=== PATIENT | female | born 1980 | race Caucasian/White ===

== ENCOUNTER 2021-01-18 11:34 | Emergency (ER) | payer OTHER ==
[2021-01-18] MEDS: Sodium Chloride 0.9% 1,000 ML IV ONE (12:05)
--- NOTE | 2021-01-18 12:24 | EDM.PDOC ---
ED HPI GENERAL MEDICAL PROBLEM - General Chief Complaint: General Stated Complaint: HBP Time Seen by Provider: 01/18/21 12:07 Source of Information: Reports: Patient - History of Present Illness INITIAL COMMENTS - FREE TEXT/NARRATIVE: Indu is a 40 y/o female who comes to the ER with complaints of dizziness. She felt fine this AM when she got up and ate breakfast and went to work. She reports sitting at her desk today and then she became dizzy. She had to get up and walk around, but was still dizzy. She went outside and was sweaty and was still dizzy. She does not feel the room spin around her and is still dizzy despite any position changes. No nausea or vomiting. SHe has not had this happen before. He mother does have a history of vertigo. She was recently started on a BP med and she is not feeling as thirsty as usual, but she is trying to drink water. No chest pain. She does have a history of anxiety and has taken Xanax in the past, but has not used it for 4 months now. She does report having a very restless time sleeping last night. Left Shoulder Pain Score (Numeric/FACES): 2 - Related Data Allergies Allergy/AdvReac Type Severity Reaction Status Date / Time azithromycin [From Zithromax] Allergy Rash Verified 01/18/21 12:44 bupropion [From Wellbutrin] Allergy Cannot Verified 01/18/21 12:44 Remember codeine Allergy Cannot Verified 01/18/21 12:44 Remember fluticasone [From Flonase] Allergy Other Verified 01/18/21 12:44 hydrocodone Allergy Rash Verified 01/18/21 12:44 hydromorphone [From Dilaudid] Allergy Cannot Verified 01/18/21 12:44 Remember oxycodone Allergy Rash Verified 01/18/21 12:44 sumatriptan Allergy Dizziness Verified 01/18/21 12:44 tramadol [From Ultram] Allergy Cannot Verified 01/18/21 12:44 Remember venlafaxine [From Effexor] Allergy Depression Verified 01/18/21 12:44 Home Meds: Home Meds Losartan Potassium 25 mg PO DAILY 01/18/21 [History] Ondansetron [Zofran ODT] 4 mg PO Q6H PRN #10 tab.dis 01/18/21 [Rx] ED ROS GENERAL - Review of Systems Review Of Systems: See Below Constitutional: Reports: Diaphoresis HEENT: Reports: No Symptoms Respiratory: Reports: No Symptoms Cardiovascular: Reports: No Symptoms Endocrine: Reports: No Symptoms GI/Abdominal: Reports: No Symptoms : Reports: No Symptoms Musculoskeletal: Reports: No Symptoms Skin: Reports: No Symptoms Neurological: Reports: Dizziness Psychiatric: Reports: Anxiety Hematologic/Lymphatic: Reports: No Symptoms Immunologic: Reports: No Symptoms ED EXAM, GENERAL - Physical Exam Exam: See Below Exam Limited By: No Limitations General Appearance: Alert, WD/WN, No Apparent Distress (Adult female.) Eye Exam: Bilateral Eye: Nystagmus (mild lateral ), PERRL Ears: Normal External Exam, Normal Canal, Hearing Grossly Normal, Normal TMs Nose: Normal Inspection, Normal Mucosa Throat/Mouth: Normal Inspection, Normal Lips, Normal Teeth, Normal Oropharynx, Normal Voice Head: Atraumatic, Normocephalic Neck: Normal Inspection, Supple, Non-Tender Respiratory/Chest: No Respiratory Distress, Lungs Clear, Chest Non-Tender Cardiovascular: Normal Peripheral Pulses, No Edema, No Murmur GI/Abdominal: Normal Bowel Sounds, Soft, Non-Tender (Female) Exam: Deferred Rectal (Female) Exam: Deferred Back Exam: Normal Inspection Extremities: Normal Inspection, Normal Range of Motion, No Pedal Edema, Normal Capillary Refill Neurological: Alert, Oriented, CN II-XII Intact, Normal Cognition, No Mo tor/Sensory Deficits Psychiatric: Normal Affect, Normal Mood Skin Exam: Warm, Dry, Intact, Normal Color Lymphatic: No Adenopathy #1 Interpretation EKG Date: 01/18/21 Time: 11:56 Rhythm: NSR Rate (Beats/Min): 96 [place]: Normal P-Wave: Present QRS: Normal ST-T: Normal QT: Normal Comparison: NA - No Prior EKG Course - Vital Signs Text/Narrative:: 1207 The patient was seen by the COMMERCIAL ENER[employer] AUDITOR. Labs and EKG were ordered. She was given a liter of NS. 1220 EKG reviewed-note NSR. 1308 Labs reviewed. CBC neg, CMP neg, Troponin=neg. UA SG >=1.030, Occult blood noted. Able to walk to bathroom and voids again. Feeling better. On re- examination no nystagus noted. Now patient feels nauseated. Zofran 4mg IVP. Suspect dizziness is related to a mild dehydration and exacerbated by the new medication and lowering of her BP with her giuseppe dx of HTN. 1330 Patient feeling better after Zofran and IV fluids done. Feels well enough to go home. Cliff send here home with Zofran Rx and have her check in with her PCP on Saturday if she is not better. She may need a lower Losartan dose or perhaps she is just getting used to the lower BP. She was given written instructions and left the ER in stable condition. Last Recorded V/S: Last Vital Signs Temp 36.8 C 01/18/21 11:35 Pulse 98 01/18/21 12:37 Resp 16 01/18/21 11:35 BP 115/78 01/18/21 12:37 Pulse Ox 97 01/18/21 11:35 - Orders/Labs/Meds Orders: Active Orders 24 hr Category Date Time Status EKG Documentation Completion [RC] URGENT Care 01/18/21 11:56 Active Labs: Laboratory Tests 01/18/21 01/18/21 01/18/21 Range/Units 11:56 12:05 12:05 WBC 11.9 H (4.0-10.0) x10^3/uL RBC 4.93 (4.00-5.50) x10^6/uL Hgb 14.8 (12.0-16.0) g/dL Hct 42.9 (33.0-47.0) % MCV 87.0 (78.0-93.0) fL MCH 30.0 (26.0-32.0) pg MCHC 34.5 (32.0-36.0) g/dL RDW Coeff of Mayi 12.8 (10.0-15.0) % Plt Count 184 (130-400) x10^3/uL Neut % (Auto) 58.1 (50.0-80.0) % Lymph % (Auto) 34.3 (25.0-50.0) % [facility] % (Auto) 6.2 (2.0-11.0) % Eos % (Auto) 1.3 (0.0-4.0) % Baso % (Auto) 0.1 L (0.2-1.2) % Sodium 138 (136-145) mmol/L Potassium 3.8 (3.5-5.1) mmol/L Chloride 103 (98-107) mmol/L Carbon Dioxide 22 (21-32) mmol/L Anion Gap 16.8 H (5-15) mmol/L BUN 15 (7-18) mg/dL Creatinine 0.7 (0.55-1.02) mg/dL Est Cr Clr Drug Dosing 96.13 mL/min Estimated GFR (MDRD) > 60 Glucose 101 H (70-99) mg/dL Calcium 8.5 (8.5-10.1) mg/dL Corrected Calcium 8.5 (8.5-10.1) mg/dL Magnesium (1.8-2.4) mg/dL Total Bilirubin 0.3 (0.2-1.0) mg/dL AST 16 (15-37) U/L ALT 31 (14-59) U/L Alkaline Phosphatase 54 (46-116) U/L Troponin I High Sens < 4 (<=51) ng/L Total Protein 7.7 (6.4-8.2) g/dL Albumin 4.0 (3.4-5.0) g/dL Globulin 3.7 Albumin/Globulin Ratio 1.08 Urine Color Yellow (YELLOW) Urine Appearance Cloudy H (CLEAR) Urine pH 5.5 (5.0-8.0) Ur Specific [place] >=1.030 Urine Protein Negative (NEGATIVE) mg/dL Urine Glucose (UA) Negative (NEGATIVE) mg/dL Urine Ketones Negative (NEGATIVE) mg/dL Urine Occult Blood Trace-lysed H (NEGATIVE) Urine Nitrite Negative (NEGATIVE) Urine Bilirubin Negative (NEGATIVE) Urine Urobilinogen 0.2 (0.2) EU/dL Ur Leukocyte Esterase Negative (NEGATIVE) Urine RBC 0-5 (NOT SEEN) /HPF Urine WBC 0-5 (NOT SEEN) /HPF Ur Squamous Epith Cells Moderate H (NOT SEEN) /HPF Urine Bacteria Many H (NOT SEEN) /HPF Urine Mucus Few H (NOT SEEN) /LPF 01/18/21 Range/Units 12:05 WBC (4.0-10.0) x10^3/uL RBC (4.00-5.50) x10^6/uL Hgb (12.0-16.0) g/dL Hct (33.0-47.0) % MCV (78.0-93.0) fL MCH (26.0-32.0) pg MCHC (32.0-36.0) g/dL RDW Coeff of Mayi (10.0-15.0) % Plt Count (130-400) x10^3/uL Neut % (Auto) (50.0-80.0) % Lymph % (Auto) (25.0-50.0) % [facility] % (Auto) (2.0-11.0) % Eos % (Auto) (0.0-4.0) % Baso % (Auto) (0.2-1.2) % Sodium (136-145) mmol/L Potassium (3.5-5.1) mmol/L Chloride (98-107) mmol/L Carbon Dioxide (21-32) mmol/L Anion Gap (5-15) mmol/L BUN (7-18) mg/dL Creatinine (0.55-1.02) mg/dL Est Cr Clr Drug Dosing mL/min Estimated GFR (MDRD) Glucose (70-99) mg/dL Calcium (8.5-10.1) mg/dL Corrected Calcium (8.5-10.1) mg/dL Magnesium 1.9 (1.8-2.4) mg/dL Total Bilirubin (0.2-1.0) mg/dL AST (15-37) U/L ALT (14-59) U/L Alkaline Phosphatase (46-116) U/L Troponin I High Sens (<=51) ng/L Total Protein (6.4-8.2) g/dL Albumin (3.4-5.0) g/dL Globulin Albumin/Globulin Ratio Urine Color (YELLOW) Urine Appearance (CLEAR) Urine pH (5.0-8.0) Ur Specific [place] Urine Protein (NEGATIVE) mg/dL Urine Glucose (UA) (NEGATIVE) mg/dL Urine Ketones (NEGATIVE) mg/dL Urine Occult Blood (NEGATIVE) Urine Nitrite (NEGATIVE) Urine Bilirubin (NEGATIVE) Urine Urobilinogen (0.2) EU/dL Ur Leukocyte Esterase (NEGATIVE) Urine RBC (NOT SEEN) /HPF Urine WBC (NOT SEEN) /HPF Ur Squamous Epith Cells (NOT SEEN) /HPF Urine Bacteria (NOT SEEN) /HPF Urine Mucus (NOT SEEN) /LPF Meds: Medications Discontinued Medications Generic Name Dose Route Start Last Admin Trade Name Freq PRN Reason Stop Dose Admin Sodium Chloride 1,000 mls @ 999 mls/hr 01/18/21 11:56 01/18/21 12:05 Normal Saline IV 01/18/21 12:56 999 mls/hr ONETIME ONE Administration Ondansetron HCl 4 mg 01/18/21 13:08 Ondansetron 4 Mg/2 Ml Sdv IVPUSH 01/18/21 13:09 ONETIME ONE Departure - Departure Time of Disposition: 13:36 Disposition: Home, Self-Care 01 Condition: Good Clinical Impression: Dizziness, Medication side effect HTN (hypertension) Qualifiers: Hypertension type: essential hypertension Qualified Code(s): I10 - Essential (primary) hypertension - Discharge Information Prescriptions: Ondansetron [Zofran ODT] 4 mg PO Q6H PRN #10 tab.dis PRN Reason: Nausea Instructions: Smoking Tobacco Information, Adult, Dizziness, Hypertension, Adult Referrals: Lee Summers MD [Primary Care Provider] - Forms: ED Department Discharge, ED Return to Work/School Form Additional Instructions: -Continue Losartan as prescribed by your PCP -Zofran ODT 4 mg oral every 6 hours as needed for nausea #10(Rx) -Stay well hydrated -Rest as needed. Work note written for the next 2 days to rest. -Follow up with your PCP on Saturday if you are not feeling better, or sooner if needed. -Return to the ER as needed for any concerns Sepsis Event Note (ED) - Evaluation Sepsis Screening Result: No Definite Risk - Focused Exam Vital Signs: Vital Signs Temp Pulse Resp BP Pulse Ox 01/18/21 12:37 98 115/78 01/18/21 11:35 36.8 C 103 H 16 120/77 97 - My Orders Last 24 Hours: My Active Orders 01/18/21 11:56 EKG Documentation Completion [RC] URGENT - Assessment/Plan Last 24 Hours: My Active Orders 01/18/21 11:56 EKG Documentation Completion [RC] URGENT Assessment:: 1)Dizziness 2)Medication Side Effect 3)HTN, recent dx 4)Tobacco Use Disorder Plan: As above
[2021-01-18 12:32] LABS: CHLORIDE,CL 103 mmol/L (98-107); SODIUM,NA 138 mmol/L (136-145)
[2021-01-18 12:34] LABS: ANION GAP 16.8 mmol/L (5-15)
[2021-01-18] MEDS: Ondansetron 4 MG/2 ML SDV IVPUSH ONE (13:10)
== END 2021-01-18 13:45 | disposition home or self-care (01) ==
LOC: VM.ED 11:34
DX: R42 Dizziness and giddiness (principal); T50.905A Adverse effect of unspecified drugs, medicaments and biological substances, initial encounter; I10 Essential (primary) hypertension; Z88.1 Allergy status to other antibiotic agents; Z88.5 Allergy status to narcotic agent; Z88.8 Allergy status to other drugs, medicaments and biological substances; Z79.899 Other long term (current) drug therapy
CPT/HCPCS: 36415; 80053; 81001; 83735; 84484; 85025; 93005; 93010; 96374; 99284; 99284-25; J2405; J7030

== ENCOUNTER 2024-02-27 09:06 | Emergency (ER) | payer OTHER, BC ==
[2024-02-27] MEDS ORDERED: Sodium Chloride 0.9% 10 ML Syringe FLUSH PRN (09:25)
[2024-02-27 09:35] LABS: APPEARANCE,URINE CLEAR (CLEAR); BILIRUBIN,URINE NEGATIVE (NEGATIVE); COLOR,URINE YELLOW (YELLOW); GLUCOSE,URINE NEGATIVE (NEGATIVE); KETONES,URINE NEGATIVE (NEGATIVE); LEUKOCYTE ESTERASE,URINE NEGATIVE (NEGATIVE); NITRITE,URINE NEGATIVE (NEGATIVE); OCCULT BLOOD,URINE TRACE-INTACT (NEGATIVE); PH,URINE 6.5 (5.0-8.0); PROTEIN,URINE NEGATIVE (NEGATIVE); UROBILINOGEN,URINE 0.2 EU/dL (0.2)
[2024-02-27 09:41] LABS: BASOPHILS PERCENT AUTO 0.1 % (0.2-1.2); EOSINOPHILS ABSOLUTE AUTO 0.2 x10^3/uL (0.0-0.5); HEMATOCRIT 42.6 % (33.0-47.0); HEMOGLOBIN 14.7 g/dL (12.0-16.0); IMMATURE GRAN ABSOLUTE AUTO 0.03 x10^3/uL (0.00-0.07); LYMPHOCYTES ABSOLUTE AUTO 3.8 x10^3/uL (1.0-4.8); LYMPHOCYTES PERCENT AUTO 26.6 % (25.0-50.0); MEAN CORPUSCULAR HEMOGLOBIN 30.4 pg (26.0-32.0); MEAN CORPUSCULAR HGB CONC 34.5 g/dL (32.0-36.0); MEAN CORPUSCULAR VOLUME 88.2 fL (78.0-93.0); MONOCYTES ABSOLUTE AUTO 0.7 x10^3/uL (0.0-0.8); MONOCYTES PERCENT AUTO 5.1 % (2.0-11.0); NEUTROPHILS ABSOLUTE AUTO 9.6 x10^3/uL (1.8-7.7); PLATELET COUNT,PLT 184 x10^3/uL (130-400); RED BLOOD CELL COUNT 4.83 x10^6/uL (4.00-5.50); WHITE BLOOD CELL COUNT,WBC 14.4 x10^3/uL (4.0-10.0)
[2024-02-27 09:43] LABS: BACTERIA,URINE MODERATE /HPF (NOT SEEN); MUCUS,URINE FEW /LPF (NOT SEEN); RBC,URINE 0-5 /HPF (NOT SEEN); SQUAMOUS EPITHELIAL CELLS,UR MODERATE /HPF (NOT SEEN); WBC,URINE 0-5 /HPF (NOT SEEN)
[2024-02-27 09:56] LABS: ALANINE AMINOTRANSFERASE,ALT 26 U/L (14-59); ALBUMIN 3.9 g/dL (3.4-5.0); ALKALINE PHOSPHATASE 63 U/L (46-116); ASPARTATE AMNIOTRANSFERASE,AST 12 U/L (15-37); BILIRUBIN TOTAL 0.3 mg/dL (0.2-1.0); BLOOD UREA NITROGEN,BUN 13 mg/dL (7-18); CALCIUM 8.9 mg/dL (8.5-10.1); CARBON DIOXIDE,CO2 26 mmol/L (21-32); CHLORIDE,CL 104 mmol/L (98-107); CREATININE 0.7 mg/dL (0.55-1.02); GLUCOSE RANDOM 105 mg/dL (70-99); MAGNESIUM 1.9 mg/dL (1.8-2.4); POTASSIUM,K 3.9 mmol/L (3.5-5.1); PROTEIN TOTAL,TP 6.9 g/dL (6.4-8.2); SODIUM,NA 141 mmol/L (136-145)
[2024-02-27] MEDS: Ondansetron 4 MG/2 ML SDV IVPUSH ONE (09:57)
[2024-02-27] MEDS: Lactated Ringers 1,000 ML IV ONE (09:57)
[2024-02-27 10:00] LABS: ANION GAP 14.9 mmol/L (5-15); ESTIMATED GFR 110 mL/min (>=60)
== END 2024-02-27 10:57 | disposition home or self-care (01) ==
LOC: VM.ED 09:06
DX: E86.0 Dehydration (principal); I10 Essential (primary) hypertension; Z88.1 Allergy status to other antibiotic agents; Z88.5 Allergy status to narcotic agent; Z88.8 Allergy status to other drugs, medicaments and biological substances; Z79.899 Other long term (current) drug therapy
CPT/HCPCS: 80053; 81001; 81025; 83735; 85025; 96361; 96374; 99284-25; J2405; J7120

== ENCOUNTER 2024-03-03 10:10 | Emergency (ER) | payer BC, OTHER ==
[2024-03-03] MEDS: Aspirin 81 MG Tab.Chew PO ONE (10:25)
[2024-03-03 10:28] LABS: BASOPHILS PERCENT AUTO 0.1 % (0.2-1.2); EOSINOPHILS ABSOLUTE AUTO 0.2 x10^3/uL (0.0-0.5); EOSINOPHILS PERCENT AUTO 1.1 % (0.0-4.0); HEMATOCRIT 42.5 % (33.0-47.0); IMMATURE GRAN ABSOLUTE AUTO 0.05 x10^3/uL (0.00-0.07); LYMPHOCYTES ABSOLUTE AUTO 4.7 x10^3/uL (1.0-4.8); MEAN CORPUSCULAR HEMOGLOBIN 30.8 pg (26.0-32.0); MEAN CORPUSCULAR HGB CONC 35.3 g/dL (32.0-36.0); MEAN CORPUSCULAR VOLUME 87.3 fL (78.0-93.0); MONOCYTES ABSOLUTE AUTO 0.7 x10^3/uL (0.0-0.8); MONOCYTES PERCENT AUTO 4.6 % (2.0-11.0); NEUTROPHILS ABSOLUTE AUTO 9.5 x10^3/uL (1.8-7.7); NEUTROPHILS PERCENT AUTO 62.9 % (50.0-80.0); PLATELET COUNT,PLT 179 x10^3/uL (130-400); RED BLOOD CELL COUNT 4.87 x10^6/uL (4.00-5.50); WHITE BLOOD CELL COUNT,WBC 15.1 x10^3/uL (4.0-10.0)
[2024-03-03 10:47] LABS: A/G RATIO 1.18; ALANINE AMINOTRANSFERASE,ALT 33 U/L (14-59); ALBUMIN 3.9 g/dL (3.4-5.0); ALKALINE PHOSPHATASE 63 U/L (46-116); ANION GAP 13.9 mmol/L (5-15); ASPARTATE AMNIOTRANSFERASE,AST 18 U/L (15-37); BILIRUBIN TOTAL 0.5 mg/dL (0.2-1.0); BLOOD UREA NITROGEN,BUN 12 mg/dL (7-18); CALCIUM 9.2 mg/dL (8.5-10.1); CARBON DIOXIDE,CO2 27 mmol/L (21-32); CHLORIDE,CL 102 mmol/L (98-107); CREATININE 0.7 mg/dL (0.55-1.02); ESTIMATED GFR 110 mL/min (>=60); GLUCOSE RANDOM 116 mg/dL (70-99); MAGNESIUM 1.9 mg/dL (1.8-2.4); POTASSIUM,K 3.9 mmol/L (3.5-5.1); PROTEIN TOTAL,TP 7.2 g/dL (6.4-8.2); SODIUM,NA 139 mmol/L (136-145)
== END 2024-03-03 11:25 | disposition home or self-care (01) ==
LOC: SUPCPDRO 10:10 → VM.ED 10:10
DX: R07.9 Chest pain, unspecified (principal); I10 Essential (primary) hypertension; F17.210 Nicotine dependence, cigarettes, uncomplicated; Z79.899 Other long term (current) drug therapy; Z88.5 Allergy status to narcotic agent; Z88.6 Allergy status to analgesic agent; Z88.8 Allergy status to other drugs, medicaments and biological substances; Z88.0 Allergy status to penicillin
CPT/HCPCS: 71045; 80053; 83735; 84484; 85025; 85730; 93005; 93010; 99284; 99285; A9270-GY